=== PATIENT | male | born 1945 | race African-American/Black ===

== ENCOUNTER 2019-04-28 10:28 | Outpatient (RCR) | payer MEDICARE, OTHER | END 2019-05-17 | disposition home or self-care (01) | LOC: WCC 10:28 | DX: L97.513 Non-pressure chronic ulcer of other part of right foot with necrosis of muscle (principal); E11.621 Type 2 diabetes mellitus with foot ulcer; Z90.49 Acquired absence of other specified parts of digestive tract; Z98.84 Bariatric surgery status; Z89.421 Acquired absence of other right toe(s); I11.9 Hypertensive heart disease without heart failure | CPT/HCPCS: 82962; 97605 ==